=== PATIENT | male | born 1995 | race Caucasian/White ===

== ENCOUNTER 2019-12-16 09:39 | Emergency (ER) | payer OTHER, SELFPAY ==
[2019-12-16 09:53] VITALS: BP 118/74; PULSE 64; RESP 16; TEMP 37; O2SAT 100; BMI 17.7
--- NOTE | 2019-12-16 09:53 | DI.RAD.S_ITS ---
PROCEDURE: XR ELBOW RT MIN 3V INDICATIONS: swelling TECHNIQUE: 3 views of the elbow were acquired. COMPARISON: None. FINDINGS: Bones: No fractures or dislocations. No suspicious bony lesions. Soft tissues: No elbow joint effusion. No suspicious soft tissue calcifications. IMPRESSION: No acute elbow fracture or dislocation. Dictated by: Rian Hillman M.D. on 12/16/2019 at 10:30 Approved by: Rian Hillman M.D. on 12/16/2019 at 10:30
--- NOTE | 2019-12-16 10:55 | ED_ITS ---
HPI - Extremity Injury (Upper) <Joanne Delacruz PA-C - Last Filed: 12/16/19 23:34> General Chief Complaint: Extremity Injury, Upper Stated Complaint: rt elbow hit on boat propeller/ swollen Time Seen by Provider: 12/16/19 10:54 Source: patient Mode of arrival: Ambulatory Limitations: no limitations History of Present Illness HPI narrative: Is a previously healthy 24-year-old who recently quit smoking who comes into the emergency department complaining of right elbow pain after sustaining an injury yesterday. 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 He continued to work the rest of his workday and then began to ice his elbow last night; comes in today because he is concerned that the swelling has increased slightly since it initially happened, and he feels he probably should have a note for work as he thinks it is likely should not be using it very much. He reports that he is a former opioid user and requests no pain medicine be prescribed today, he is comfortable with ibuprofen and Tylenol for pain. This is an isolated injury and he has no other complaints and has been in his normal state of health. complaint: injury to: right and elbow Onset (ago): day(s) (1) Other Extremity Injury: Right: elbow Other injuries: none Handedness: right Place: work Severity: mild Severity scale (1-10): 3 Relieving factors: cold therapy Exacerbating factors: movement of extremity Context: direct blow (rajendra elbow back on mower pullcord and hit both propeller behind him (boat on trailer).) Associated symptoms: denies other symptoms Treatments prior to arrival: cold therapy Related Data Allergies Allergy/AdvReac Type Severity Reaction Status Date / Time codeine Allergy Verified 12/16/19 10:40 Review of Systems <Joanne Delacruz PA-C - Last Filed: 12/16/19 23:34> Review of Systems Narrative: GENERAL: Denies chills, fatigue, malaise, fever, sweats. HEENT: Denies sinus pain, ear pain, sore throat, difficulty swallowing, dizziness. RESPIRATORY: Denies dyspnea, cough, wheezing, hemoptysis, sputum. CARDIOVASCULAR: Denies chest pain, palpitations, orthopnea, edema, GASTROINTESTINAL: Denies nausea, vomiting, abdominal pain, diarrhea, constipatio n, melena. : Denies dysuria, frequency, incontinence, hematuria, urinary retention. MUSCULOSKELETAL: denies weakness, positive for joint pain, and bony pain of his right elbow SKIN: Positive for some swelling on the outside of his right elbow Denies rash, skin lesions, or other NEUROLOGIC: Denies weakness, headache, numbness, change in speech, confusion, seizures, incoordination. PSYCHIATRIC: No concerning psychosocial issues. 12 point review of systems is negative except for those stated above Patient History <Joanne Delacruz PA-C - Last Filed: 12/16/19 23:34> Social History Smoking Status: Former smoker Smoking Status: Former smoker alcohol intake frequency: 0-2 drinks per day Substance Use Type: marijuana Exam <Joanne Delacruz PA-C - Last Filed: 12/16/19 23:34> Narrative Exam Narrative: GENERAL: 24 year old patient appears stated age. Well-nourished, well-developed patient, in mild distress. HEAD: Atraumatic. Normocephalic. EYES: Pupils equal round and reactive. Extraocular motions intact. No scleral icterus. No injection or drainage. ENT: Nose without bleeding, purulent drainage. Throat without erythema, tonsillar hypertrophy or exudate. Airway patent. NECK: Trachea midline. Non tender CARDIOVASCULAR: Regular rate and rhythm without murmurs, gallops, or rubs. RESPIRATORY: Clear to auscultation. Breath sounds equal bilaterally. No wheezes, rales, or rhonchi. GASTROINTESTINAL: Abdomen soft, non-tender, nondistended. EXTREMITIES: No edema or joint tenderness, with exception of right arm he has pain with range of motion of his right elbow, and tenderness with palpation of the lateral epicondyle and proximal ulna sensation and capillary refill and range of motion are intact in the affected extremity at the shoulder, elbow, wrist, hand and the fingers.. BACK: Nontender without deformity or crepitance. No flank tenderness. NEURO: AOx3. SKIN: No rash or erythema of visible areas Initial Vital Signs Initial Vital Signs: Vital Signs Temperature 98.6 F 12/16/19 09:53 Pulse Rate 64 12/16/19 09:53 Respiratory Rate 16 12/16/19 09:53 Blood Pressure 118/74 12/16/19 09:53 Pulse Oximetry 100 12/16/19 09:53 <Patrick Hyde MD - Last Filed: 12/17/19 07:52> Initial Vital Signs Initial Vital Signs: Vital Signs Temperature 98.6 F 12/16/19 09:53 Pulse Rate 64 12/16/19 09:53 Respiratory Rate 16 12/16/19 09:53 Blood Pressure 118/74 12/16/19 09:53 Pulse Oximetry 100 12/16/19 09:53 Course <Joanne Delacruz PA-C - Last Filed: 12/16/19 23:34> Orders Ordered: ED Orders 12/16/19 09:53 XR elbow RT min 3V Stat Vital Signs Vital signs: Vital Signs - 8 hr 12/16/19 09:53 Temperature 98.6 F Pulse Rate 64 Respiratory Rate 16 Blood Pressure 118/74 Pulse Oximetry 100 <Patrick Hyde MD - Last Filed: 12/17/19 07:52> Orders Ordered: ED Orders 12/16/19 09:53 XR elbow RT min 3V Stat Vital Signs Vital signs: Vital Signs - 8 hr 12/16/19 09:53 Temperature 98.6 F Pulse Rate 64 Respiratory Rate 16 Blood Pressure 118/74 Pulse Oximetry 100 MDM - Extremity Injury (Upper) <Joanne Delacruz PA-C - Last Filed: 12/16/19 23:34> Differential Diagnosis Differential diagnosis: Likely other (Sprain and strain of right elbow) Medical Records Attestation: I reviewed the patient's medical records. Imaging Data Extremity x-ray #1: Attestation: I personally reviewed and interpreted this imaging study as follows: Radiologist's Impression: [address] [address] XRay Report Signed Patient: Peterson Escalona#: [id number] : 1995Acct:[id number] Age/Sex: 24 / MDate of Service: 12/16/19 Loc: ED Accession Number: [id number] Procedure: XR elbow RT min 3V Ordering Provider: Patrick Hyde MD PROCEDURE: XR ELBOW RT MIN 3V INDICATIONS: swelling TECHNIQUE: 3 views of the elbow were acquired. COMPARISON: None. FINDINGS: Bones: No fractures or dislocations. No suspicious bony lesions. Soft tissues: No elbow joint effusion. No suspicious soft tissue calcifications. IMPRESSION: No acute elbow fracture or dislocation. Dictated by: Rian Hillman M.D. on 12/16/2019 at 10:30 Approved by: Rian Hillman M.D. 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 Had no other complaints and has been in his normal state of health. Differential diagnoses that were considered include fracture, sprain, strain, traumatic bursitis. Based on imaging and exam I think he likely has a sprain and strain and he was provided with an Curtis wrap, a shoulder sling and given advice regarding RICE he was also given a work note through next Friday as needed and encouraged to establish care with a PCP and see them in the next 2-5 days and given a referral to [facility]. He was provided with emergency return precautions and all questions were answered. Discharge Plan Departure Patient Disposition: Home Clinical Impression: Sprain and strain of elbow, Pain and swelling of right elbow Discharge Date/Time: 12/16/19 11:27 Instructions: How To Perform RICE (Rest, Ice, Compress, Elevate), DI for Elbow Sprain, DI for Elbow Pain Activity Restrictions/Additional Instructions: Thank you for letting us a part of your care today. There is no evidence of an emergent or life threatening illness at this time, but follow up with your doctor in 1-2 days is recommended nonetheless to continue to rule out serious underlying causes of your symptoms. Please call the office for an appointment. Please return to the Emergency Department for any worsening or persistent symptoms. Please take medications as directed. I have included a referral to the [facility] that can help set you up with a PCP and a follow-up appointment. It is important for you to follow-up in the next 3-5 days to confirm that your injury is improving. In order for you to heal well from this it is very important that you continue to ice it intermittently over the next 24-48 hours, keep it wrapped with an Curtis wrap, and where the sling whenever possible to help immobilize her elbow. The less you can use it over the next 7-12 days the better. I have provided you with a work note through next Friday. By which time you should have hopefully had a follow-up appointment. You can alternate Tylenol and ibuprofen for pain. Please see the included instructions regarding RICE as well. Referrals: [facility] [Outside] Stand Alone Forms: Work Release Note
== END 2019-12-16 11:27 | disposition home or self-care (01) ==
PROVIDERS: Emergency Provider Student in an Organized Health Care Education/Training Program
DX: S53.401A Unspecified sprain of right elbow, initial encounter (principal); S56.911A Strain of unspecified muscles, fascia and tendons at forearm level, right arm, initial encounter; M79.89 Other specified soft tissue disorders; W22.8XXA Striking against or struck by other objects, initial encounter
CPT/HCPCS: 73080; 99283